=== PATIENT | female | born 1965 | race African-American/Black ===

== ENCOUNTER 2020-07-06 12:45 | Outpatient (REF) | payer OTHER, SELFPAY ==
[2020-07-06 13:24] LABS: Hemoglobin 8.7 g/dl (12.0-16.0); Mean Corpuscular Hemoglobin 27.1 pg (27.0-33.0); Red Blood Count 3.21 X10*6/uL (4.20-5.50); Red Cell Distribution Width 16.1 % (11.0-16.0)
[2020-07-06 13:26] LABS: Hematocrit 27.3 % (37-47); Mean Corpuscular HGB Conc 31.9 g/dl (31.0-35.0); PLT CLUMP 1
[2020-07-06 13:28] LABS: PLT ABN DIST 1
[2020-07-06 14:48] LABS: White Blood Count 4.7 X10*3/uL (4.8-10.8)
== END 2020-07-06 12:46 | disposition home or self-care (01) ==
LOC: HO.MMNH1L 12:45
PROVIDERS: Visit Provider Family Medicine
DX: E11.22 Type 2 diabetes mellitus with diabetic chronic kidney disease (principal); N18.9 Chronic kidney disease, unspecified
CPT/HCPCS: 36415; 85027